=== PATIENT | male | born 1950 | race Caucasian/White ===

== ENCOUNTER 2016-12-27 16:36 | Inpatient (IN) | payer MEDICARE, OTHER ==
[~2016-12-27 16:36] MED LIST: ADULT LOW DOSE81 M1 PO; FAMVIR500 M2 PO; LEVOTHYROXINE75 MC3 PO; LOSARTAN POTAS100 M1 PO; MAGNESIUM OXID400 M1 PO; NORCO 5-325 TA1 EACH PO; OMEPRAZOLE20 M3 PO
[2016-12-31] MEDS ORDERED: PROTONIX40 M2 PO (09:41)
[2017-01-01] MEDS ORDERED: MAGNESIUM OXID400 M1 PO (12:45)
[2017-01-01] MEDS ORDERED: OMEPRAZOLE20 M3 PO (12:46)
== END 2016-12-31 13:05 | DRG 201 ==
LOC: SHSA 16:36 → PCUB 20:05
PROVIDERS: ADMIT Surgery
PROC: 0W9930Z Drainage of Right Pleural Cavity with Drainage Device, Percutaneous Approach (ICD-10-PCS; principal; 2016-12-27)
DX: J95.811 Postprocedural pneumothorax (principal); I10 Essential (primary) hypertension; F17.210 Nicotine dependence, cigarettes, uncomplicated; Z79.82 Long term (current) use of aspirin; Z85.118 Personal history of other malignant neoplasm of bronchus and lung
CPT/HCPCS: C1769; J3010; J7030

== ENCOUNTER 2017-01-01 11:32 | Inpatient (IN) | payer MEDICARE, OTHER ==
[~2017-01-01 11:32] MED LIST changes: +PROTONIX40 M2 PO
[2017-01-01] MEDS ORDERED: MAGNESIUM OXID400 M1 PO (12:45)
[2017-01-01 12:46] LABS: BASO % 0.3 % (0-2); EOS % 0.6 % (0-7); EOSINOPHIL ABSOLUTE COUNT 0.1 tho/cmm (0.0-0.7); HCT-HEMATOCRIT 32.3 % (36.0-53.5); HGB-HEMOGLOBIN 11.1 gm/dl (13.5-17.0); IMMATURE GRANULOCYTES ABSOLUTE 0.04 tho/cmm (0-0.03); IMMATURE GRANULOCYTES PERCENT 0.4 % (0-0.3); LYMPH % 3.8 % (20-45); LYMPH ABSOLUTE COUNT 0.4 tho/cmm (0.8-4.5); MCH (MEAN CORPUSCULAR HGB) 31.8 pg (28.0-32.0); MCHC MEAN CORPUSCULAR HGB CONC 34.4 % (32.0-36.0); MEAN PLATELET VOLUME 9.1 cmc (9.4-12.4); MONO % 8.6 % (0-12); MONOCYTE ABSOLUTE COUNT 0.9 tho/cmm (0.0-1.2); NEUTROPHIL ABSOLUTE COUNT 8.7 tho/cmm (1.6-8.0); NEUTROPHIL-AUTOMATED 8.7 tho/cmm (1.6-8.0); NEUTROPHILS % 86.3 % (40-80); PLATELET COUNT 359 tho/cmm (150-450); RED BLOOD COUNT 3.49 mil/cmm (4.40-5.70); RED CELL DISTRIBUTION WIDTH 16.6 % (12.4-16.4)
[2017-01-01] MEDS ORDERED: OMEPRAZOLE20 M3 PO (12:46)
[2017-01-01 12:48] LABS: MCV (MEAN CELL VOLUME) 92.6 fl (82.0-96.0)
[2017-01-01 13:06] LABS: ANION GAP 13 mmol/L (0-20); BLOOD UREA NITROGEN 11 mg/dl (6-24); CALCIUM 8.8 mg/dl (8.5-10.5); CARBON DIOXIDE-VENOUS 29 mmol/L (22-32); CHLORIDE 96 mmol/l (96-110); CREATININE 0.73 mg/dl (0.60-1.30); GLUCOSE 90 mg/dL (70-110); POTASSIUM 4.1 mmol/L (3.7-5.1); SODIUM 134 mmol/L (135-145); eGFR VALUE FOR BLACK >90 mL/Min
[2017-01-01 16:41] LABS: ALB/GLOB RATIO 0.7 (0.8-2.0); ALBUMIN 2.7 g/dl (3.5-5.0); ALKALINE PHOSPHATASE 69 U/L (33-138); ALT/SGPT 10 U/L (12-78); ANION GAP 12 mmol/L (0-20); AST/SGOT 18 U/L (10-40); BILIRUBIN,TOTAL 0.4 mg/dl (0.0-1.5); BLOOD UREA NITROGEN 11 mg/dl (6-24); CALCIUM 8.8 mg/dl (8.5-10.5); CARBON DIOXIDE-VENOUS 28 mmol/L (22-32); CHLORIDE 98 mmol/l (96-110); CREATININE 0.77 mg/dl (0.60-1.30); GLUCOSE 88 mg/dL (70-110); MAGNESIUM 1.8 mg/dl (1.3-2.6); POTASSIUM 4.1 mmol/L (3.7-5.1); SODIUM 134 mmol/L (135-145); eGFR VALUE FOR BLACK >90 mL/Min
[2017-01-02 06:17] LABS: ANION GAP 12 mmol/L (0-20); BLOOD UREA NITROGEN 10 mg/dl (6-24); CARBON DIOXIDE-VENOUS 28 mmol/L (22-32); CHLORIDE 99 mmol/l (96-110); CREATININE 0.91 mg/dl (0.60-1.30); GLUCOSE 97 mg/dL (70-110); POTASSIUM 3.6 mmol/L (3.7-5.1); SODIUM 135 mmol/L (135-145); eGFR VALUE FOR BLACK >90 mL/Min
[2017-01-03 06:00] LABS: HGB-HEMOGLOBIN 9.1 gm/dl (13.5-17.0); PLATELET COUNT 303 tho/cmm (150-450)
[2017-01-03] MEDS ORDERED: LEVAQUIN750 M1 PO (15:00)
[2017-01-03] MEDS ORDERED: VENTOLIN HFA18 G2 INH (15:00)
[2017-01-03] MEDS ORDERED: DELTASONE20 MG PO (15:02)
== END 2017-01-03 16:30 | DRG 194 ==
LOC: EDMED 11:32 → EMR2 15:55 → 5WD 16:58
PROVIDERS: Emergency Medicine; ADMIT Internal Medicine
DX: J18.9 Pneumonia, unspecified organism (principal); J95.811 Postprocedural pneumothorax; C34.31 Malignant neoplasm of lower lobe, right bronchus or lung; J44.9 Chronic obstructive pulmonary disease, unspecified; J40 Bronchitis, not specified as acute or chronic; B02.9 Zoster without complications; E03.9 Hypothyroidism, unspecified; Z79.82 Long term (current) use of aspirin; Y95 Nosocomial condition; Z72.89 Other problems related to lifestyle; I10 Essential (primary) hypertension; Y83.8 Other surgical procedures as the cause of abnormal reaction of the patient, or of later complication, without mention of misadventure at the time of the procedure; Y92.9 Unspecified place or not applicable; Z85.89 Personal history of malignant neoplasm of other organs and systems; F17.210 Nicotine dependence, cigarettes, uncomplicated; Z87.442 Personal history of urinary calculi; Z92.3 Personal history of irradiation; Z92.21 Personal history of antineoplastic chemotherapy
CPT/HCPCS: G8978-GP-CJ; G8979-GP-CI; J1650; J1956; J2270; J2543; J3370; J7030; J7512; Q9967

== ENCOUNTER 2017-01-30 17:55 | Inpatient (IN) | payer MEDICARE, OTHER ==
[~2017-01-30 17:55] MED LIST changes: +DELTASONE20 MG PO; +LEVAQUIN750 M1 PO; +VENTOLIN HFA18 G2 INH
[2017-01-30] MEDS ORDERED: ATIVAN0.5 M1 PO (19:03)
[2017-01-30] MEDS ORDERED: [UNRECOGNIZED DRUG - CODE] PO (19:05)
[2017-01-30] MEDS ORDERED: SPIRIVA18 MC1 INH (19:06)
[2017-01-30] MEDS ORDERED: ADVAIR 25028 BLISTE1 INH (19:06)
[2017-01-31 06:16] LABS: ANION GAP 12 mmol/L (0-20); BLOOD UREA NITROGEN 16 mg/dl (6-24); CARBON DIOXIDE-VENOUS 30 mmol/L (22-32); CHLORIDE 97 mmol/l (96-110); CREATININE 0.74 mg/dl (0.60-1.30); GLUCOSE 123 mg/dL (70-110); MAGNESIUM 1.9 mg/dl (1.8-2.6); POTASSIUM 4.2 mmol/L (3.7-5.1); SODIUM 135 mmol/L (135-145); eGFR VALUE FOR BLACK >90 mL/Min
[2017-01-31 06:23] LABS: EOS % 0.1 % (0-7); HCT-HEMATOCRIT 28.3 % (36.0-53.5); HGB-HEMOGLOBIN 9.4 gm/dl (13.5-17.0); IMMATURE GRANULOCYTES ABSOLUTE 0.04 tho/cmm (0-0.03); IMMATURE GRANULOCYTES PERCENT 0.3 % (0-0.3); LYMPH % 4.7 % (20-45); LYMPH ABSOLUTE COUNT 0.7 tho/cmm (0.8-4.5); MCH (MEAN CORPUSCULAR HGB) 28.8 pg (28.0-32.0); MCHC MEAN CORPUSCULAR HGB CONC 33.2 % (32.0-36.0); MEAN PLATELET VOLUME 9.7 cmc (9.4-12.4); MONO % 5.2 % (0-12); MONOCYTE ABSOLUTE COUNT 0.8 tho/cmm (0.0-1.2); NEUTROPHIL ABSOLUTE COUNT 14.1 tho/cmm (1.6-8.0); NEUTROPHIL-AUTOMATED 14.1 tho/cmm (1.6-8.0); NEUTROPHILS % 89.7 % (40-80); PLATELET COUNT 378 tho/cmm (150-450); RED BLOOD COUNT 3.26 mil/cmm (4.40-5.70); RED CELL DISTRIBUTION WIDTH 16.5 % (12.4-16.4); WHITE BLOOD COUNT 15.7 tho/cmm (4.0-10.0)
[2017-01-31 06:28] LABS: MCV (MEAN CELL VOLUME) 86.8 fl (82.0-96.0)
[2017-01-31] MEDS ORDERED: COLACE100 M1 PO (11:28)
[2017-01-31] MEDS ORDERED: MIRALAX17 G2 PO (11:28)
[2017-01-31] MEDS ORDERED: VENTOLIN HFA18 G2 INH (11:28)
[2017-01-31 16:39] LABS: BODY FLUID APPEARANCE HAZY (CLEAR); BODY FLUID COLOR YELLOW (COLORLESS); BODY FLUID RBC COUNT 2000 cmm (0); BODY FLUID TYPE PLEURAL; BODY FLUID VOLUME 20 ml; BODY FLUID WBC COUNT 176 cmm
[2017-01-31 19:17] LABS: BODY FLUID LYMPHOCYTES 82 %; BODY FLUID MACROPHAGES 10 %; BODY FLUID MESOTHELIAL CELLS 3 %; BODY FLUID NEUTROPHILS 5 %
[2017-02-01 09:12] LABS: BODY FLUID TYPE PLEURAL
[2017-02-01 11:34] LABS: BASO % 0.1 % (0-2); EOSINOPHIL ABSOLUTE COUNT 0.1 tho/cmm (0.0-0.7); HCT-HEMATOCRIT 30.8 % (36.0-53.5); HGB-HEMOGLOBIN 10.1 gm/dl (13.5-17.0); IMMATURE GRANULOCYTES ABSOLUTE 0.03 tho/cmm (0-0.03); IMMATURE GRANULOCYTES PERCENT 0.3 % (0-0.3); LYMPH % 8.7 % (20-45); MCH (MEAN CORPUSCULAR HGB) 29.4 pg (28.0-32.0); MCHC MEAN CORPUSCULAR HGB CONC 32.8 % (32.0-36.0); MCV (MEAN CELL VOLUME) 89.8 fl (82.0-96.0); MEAN PLATELET VOLUME 9.2 cmc (9.4-12.4); MONO % 3.7 % (0-12); MONOCYTE ABSOLUTE COUNT 0.4 tho/cmm (0.0-1.2); NEUTROPHIL ABSOLUTE COUNT 9.6 tho/cmm (1.6-8.0); NEUTROPHIL-AUTOMATED 9.6 tho/cmm (1.6-8.0); NEUTROPHILS % 86.2 % (40-80); PLATELET COUNT 365 tho/cmm (150-450); RED BLOOD COUNT 3.43 mil/cmm (4.40-5.70); RED CELL DISTRIBUTION WIDTH 16.7 % (12.4-16.4); WHITE BLOOD COUNT 11.1 tho/cmm (4.0-10.0)
[2017-02-01 11:45] LABS: ANION GAP 13 mmol/L (0-20); BLOOD UREA NITROGEN 12 mg/dl (6-24); CALCIUM 8.8 mg/dl (8.5-10.5); CARBON DIOXIDE-VENOUS 30 mmol/L (22-32); CHLORIDE 97 mmol/l (96-110); CREATININE 0.66 mg/dl (0.60-1.30); GLUCOSE 85 mg/dL (70-110); POTASSIUM 4.1 mmol/L (3.7-5.1); SODIUM 136 mmol/L (135-145); eGFR VALUE FOR BLACK >90 mL/Min
[2017-02-01 19:30] LABS: BASO % 0.1 % (0-2); EOS % 0.1 % (0-7); HCT-HEMATOCRIT 30.5 % (36.0-53.5); HGB-HEMOGLOBIN 10.1 gm/dl (13.5-17.0); IMMATURE GRANULOCYTES ABSOLUTE 0.05 tho/cmm (0-0.03); IMMATURE GRANULOCYTES PERCENT 0.3 % (0-0.3); LYMPH % 2.1 % (20-45); LYMPH ABSOLUTE COUNT 0.3 tho/cmm (0.8-4.5); MCH (MEAN CORPUSCULAR HGB) 29.6 pg (28.0-32.0); MCHC MEAN CORPUSCULAR HGB CONC 33.1 % (32.0-36.0); MCV (MEAN CELL VOLUME) 89.4 fl (82.0-96.0); MEAN PLATELET VOLUME 9.2 cmc (9.4-12.4); MONO % 1.8 % (0-12); MONOCYTE ABSOLUTE COUNT 0.3 tho/cmm (0.0-1.2); NEUTROPHIL ABSOLUTE COUNT 15.2 tho/cmm (1.6-8.0); NEUTROPHIL-AUTOMATED 15.2 tho/cmm (1.6-8.0); NEUTROPHILS % 95.6 % (40-80); PLATELET COUNT 371 tho/cmm (150-450); RED BLOOD COUNT 3.41 mil/cmm (4.40-5.70); RED CELL DISTRIBUTION WIDTH 16.7 % (12.4-16.4); WHITE BLOOD COUNT 15.9 tho/cmm (4.0-10.0)
[2017-02-01 19:42] LABS: ANION GAP 15 mmol/L (0-20); BLOOD UREA NITROGEN 14 mg/dl (6-24); CALCIUM 8.3 mg/dl (8.5-10.5); CARBON DIOXIDE-VENOUS 26 mmol/L (22-32); CHLORIDE 98 mmol/l (96-110); CREATININE 0.77 mg/dl (0.60-1.30); GLUCOSE 127 mg/dL (70-110); MAGNESIUM 1.3 mg/dl (1.8-2.6); POTASSIUM 4.5 mmol/L (3.7-5.1); SODIUM 134 mmol/L (135-145); eGFR VALUE FOR BLACK >90 mL/Min
[2017-02-01 22:39] LABS: HCT-HEMATOCRIT 28.1 % (36.0-53.5); HGB-HEMOGLOBIN 9.3 gm/dl (13.5-17.0); MCV (MEAN CELL VOLUME) 88.9 fl (82.0-96.0); RED CELL DISTRIBUTION WIDTH 16.8 % (12.4-16.4)
[2017-02-02 05:03] LABS: BASO % 0.1 % (0-2); HCT-HEMATOCRIT 28.3 % (36.0-53.5); HGB-HEMOGLOBIN 9.2 gm/dl (13.5-17.0); IMMATURE GRANULOCYTES ABSOLUTE 0.05 tho/cmm (0-0.03); IMMATURE GRANULOCYTES PERCENT 0.4 % (0-0.3); LYMPH % 3.8 % (20-45); LYMPH ABSOLUTE COUNT 0.5 tho/cmm (0.8-4.5); MCHC MEAN CORPUSCULAR HGB CONC 32.5 % (32.0-36.0); MCV (MEAN CELL VOLUME) 89.3 fl (82.0-96.0); MEAN PLATELET VOLUME 9.2 cmc (9.4-12.4); MONO % 3.8 % (0-12); MONOCYTE ABSOLUTE COUNT 0.5 tho/cmm (0.0-1.2); NEUTROPHIL ABSOLUTE COUNT 11.8 tho/cmm (1.6-8.0); NEUTROPHIL-AUTOMATED 11.8 tho/cmm (1.6-8.0); NEUTROPHILS % 91.9 % (40-80); PLATELET COUNT 351 tho/cmm (150-450); RED BLOOD COUNT 3.17 mil/cmm (4.40-5.70); RED CELL DISTRIBUTION WIDTH 16.8 % (12.4-16.4); WHITE BLOOD COUNT 12.8 tho/cmm (4.0-10.0)
[2017-02-02 05:12] LABS: ANION GAP 12 mmol/L (0-20); BLOOD UREA NITROGEN 16 mg/dl (6-24); CALCIUM 8.5 mg/dl (8.5-10.5); CARBON DIOXIDE-VENOUS 28 mmol/L (22-32); CHLORIDE 97 mmol/l (96-110); CREATININE 0.82 mg/dl (0.60-1.30); GLUCOSE 140 mg/dL (70-110); MAGNESIUM 1.6 mg/dl (1.8-2.6); POTASSIUM 4.3 mmol/L (3.7-5.1); SODIUM 133 mmol/L (135-145); eGFR VALUE FOR BLACK >90 mL/Min
[2017-02-02 14:15] LABS: INR 1.1 INR (0.9-1.1); PROTHROMBIN TIME 12.9 SECONDS (9.0-13.6)
[2017-02-03 04:16] LABS: EOS % 0.1 % (0-7); HCT-HEMATOCRIT 24.4 % (36.0-53.5); HGB-HEMOGLOBIN 8.1 gm/dl (13.5-17.0); IMMATURE GRANULOCYTES ABSOLUTE 0.06 tho/cmm (0-0.03); IMMATURE GRANULOCYTES PERCENT 0.5 % (0-0.3); LYMPH % 4.3 % (20-45); LYMPH ABSOLUTE COUNT 0.5 tho/cmm (0.8-4.5); MCH (MEAN CORPUSCULAR HGB) 29.3 pg (28.0-32.0); MCHC MEAN CORPUSCULAR HGB CONC 33.2 % (32.0-36.0); MCV (MEAN CELL VOLUME) 88.4 fl (82.0-96.0); MEAN PLATELET VOLUME 8.7 cmc (9.4-12.4); MONO % 3.6 % (0-12); MONOCYTE ABSOLUTE COUNT 0.4 tho/cmm (0.0-1.2); NEUTROPHIL ABSOLUTE COUNT 10.9 tho/cmm (1.6-8.0); NEUTROPHIL-AUTOMATED 10.9 tho/cmm (1.6-8.0); NEUTROPHILS % 91.5 % (40-80); PLATELET COUNT 345 tho/cmm (150-450); RED BLOOD COUNT 2.76 mil/cmm (4.40-5.70); RED CELL DISTRIBUTION WIDTH 16.7 % (12.4-16.4)
[2017-02-03 04:25] LABS: ANION GAP 10 mmol/L (0-20); BLOOD UREA NITROGEN 13 mg/dl (6-24); CARBON DIOXIDE-VENOUS 30 mmol/L (22-32); CHLORIDE 101 mmol/l (96-110); CREATININE 0.61 mg/dl (0.60-1.30); GLUCOSE 121 mg/dL (70-110); MAGNESIUM 1.8 mg/dl (1.8-2.6); POTASSIUM 3.8 mmol/L (3.7-5.1); SODIUM 137 mmol/L (135-145); eGFR VALUE FOR BLACK >90 mL/Min
[2017-02-04 04:57] LABS: ANION GAP 11 mmol/L (0-20); BLOOD UREA NITROGEN 15 mg/dl (6-24); CARBON DIOXIDE-VENOUS 30 mmol/L (22-32); CHLORIDE 100 mmol/l (96-110); CREATININE 0.67 mg/dl (0.60-1.30); GLUCOSE 174 mg/dL (70-110); MAGNESIUM 1.7 mg/dl (1.8-2.6); POTASSIUM 3.6 mmol/L (3.7-5.1); SODIUM 137 mmol/L (135-145); eGFR VALUE FOR BLACK >90 mL/Min
[2017-02-04 05:03] LABS: HCT-HEMATOCRIT 25.8 % (36.0-53.5); HGB-HEMOGLOBIN 8.5 gm/dl (13.5-17.0); IMMATURE GRANULOCYTES ABSOLUTE 0.11 tho/cmm (0-0.03); IMMATURE GRANULOCYTES PERCENT 0.8 % (0-0.3); LYMPH % 3.1 % (20-45); LYMPH ABSOLUTE COUNT 0.4 tho/cmm (0.8-4.5); MCH (MEAN CORPUSCULAR HGB) 29.1 pg (28.0-32.0); MCHC MEAN CORPUSCULAR HGB CONC 32.9 % (32.0-36.0); MCV (MEAN CELL VOLUME) 88.4 fl (82.0-96.0); MEAN PLATELET VOLUME 8.9 cmc (9.4-12.4); MONO % 2.1 % (0-12); MONOCYTE ABSOLUTE COUNT 0.3 tho/cmm (0.0-1.2); NEUTROPHIL ABSOLUTE COUNT 12.6 tho/cmm (1.6-8.0); NEUTROPHIL-AUTOMATED 12.6 tho/cmm (1.6-8.0); PLATELET COUNT 393 tho/cmm (150-450); RED BLOOD COUNT 2.92 mil/cmm (4.40-5.70); RED CELL DISTRIBUTION WIDTH 16.6 % (12.4-16.4); WHITE BLOOD COUNT 13.4 tho/cmm (4.0-10.0)
[2017-02-05 07:42] LABS: ABG CO2 ARTERIAL 31 mmol/L (21-27); ARTERIAL BLD GAS O2 SATURATION 93 % (95-98); ARTERIAL BLOOD GAS PCO2 41 mmHg (32-45); ARTERIAL PO2 68 mmHg (70-100); BICARBONATE 29 mmol/L (21-28); BLOOD GAS BASE EXCESS 6 mM/L (-/+3); PH 7.47 Units (7.35-7.45)
[2017-02-06 04:31] LABS: HCT-HEMATOCRIT 29.2 % (36.0-53.5); HGB-HEMOGLOBIN 9.7 gm/dl (13.5-17.0); IMMATURE GRANULOCYTES ABSOLUTE 0.13 tho/cmm (0-0.03); IMMATURE GRANULOCYTES PERCENT 0.6 % (0-0.3); LYMPH % 2.3 % (20-45); LYMPH ABSOLUTE COUNT 0.5 tho/cmm (0.8-4.5); MCHC MEAN CORPUSCULAR HGB CONC 33.2 % (32.0-36.0); MCV (MEAN CELL VOLUME) 87.2 fl (82.0-96.0); MEAN PLATELET VOLUME 9.1 cmc (9.4-12.4); MONO % 2.6 % (0-12); MONOCYTE ABSOLUTE COUNT 0.6 tho/cmm (0.0-1.2); NEUTROPHIL ABSOLUTE COUNT 21.1 tho/cmm (1.6-8.0); NEUTROPHIL-AUTOMATED 21.1 tho/cmm (1.6-8.0); NEUTROPHILS % 94.5 % (40-80); PLATELET COUNT 446 tho/cmm (150-450); RED BLOOD COUNT 3.35 mil/cmm (4.40-5.70)
[2017-02-06 04:37] LABS: WHITE BLOOD COUNT 22.3 tho/cmm (4.0-10.0)
[2017-02-06 04:43] LABS: ANION GAP 12 mmol/L (0-20); BLOOD UREA NITROGEN 20 mg/dl (6-24); CALCIUM 6.9 mg/dl (8.5-10.5); CARBON DIOXIDE-VENOUS 28 mmol/L (22-32); CHLORIDE 97 mmol/l (96-110); CREATININE 0.84 mg/dl (0.60-1.30); GLUCOSE 217 mg/dL (70-110); MAGNESIUM 1.3 mg/dl (1.8-2.6); SODIUM 134 mmol/L (135-145); eGFR VALUE FOR BLACK >90 mL/Min
[2017-02-07 03:38] LABS: HCT-HEMATOCRIT 26.3 % (36.0-53.5); HGB-HEMOGLOBIN 8.8 gm/dl (13.5-17.0); IMMATURE GRANULOCYTES PERCENT 0.4 % (0-0.3); LYMPH ABSOLUTE COUNT 0.5 tho/cmm (0.8-4.5); MCH (MEAN CORPUSCULAR HGB) 28.9 pg (28.0-32.0); MCHC MEAN CORPUSCULAR HGB CONC 33.5 % (32.0-36.0); MCV (MEAN CELL VOLUME) 86.5 fl (82.0-96.0); MEAN PLATELET VOLUME 9.1 cmc (9.4-12.4); MONO % 2.4 % (0-12); MONOCYTE ABSOLUTE COUNT 0.6 tho/cmm (0.0-1.2); NEUTROPHIL ABSOLUTE COUNT 24.7 tho/cmm (1.6-8.0); NEUTROPHIL-AUTOMATED 24.7 tho/cmm (1.6-8.0); NEUTROPHILS % 95.2 % (40-80); PLATELET COUNT 412 tho/cmm (150-450); RED BLOOD COUNT 3.04 mil/cmm (4.40-5.70); WHITE BLOOD COUNT 25.9 tho/cmm (4.0-10.0)
[2017-02-07 03:46] LABS: ANION GAP 12 mmol/L (0-20); BLOOD UREA NITROGEN 17 mg/dl (6-24); CALCIUM 6.9 mg/dl (8.5-10.5); CARBON DIOXIDE-VENOUS 31 mmol/L (22-32); CHLORIDE 97 mmol/l (96-110); CREATININE 0.86 mg/dl (0.60-1.30); POTASSIUM 3.7 mmol/L (3.7-5.1); SODIUM 136 mmol/L (135-145); eGFR VALUE FOR BLACK >90 mL/Min
[2017-02-07 03:48] LABS: GLUCOSE 421 mg/dL (70-110)
[2017-02-10 05:10] LABS: HCT-HEMATOCRIT 24.8 % (36.0-53.5); HGB-HEMOGLOBIN 8.3 gm/dl (13.5-17.0); IMMATURE GRANULOCYTES ABSOLUTE 0.17 tho/cmm (0-0.03); IMMATURE GRANULOCYTES PERCENT 0.6 % (0-0.3); LYMPH % 3.4 % (20-45); MCH (MEAN CORPUSCULAR HGB) 29.3 pg (28.0-32.0); MCHC MEAN CORPUSCULAR HGB CONC 33.5 % (32.0-36.0); MCV (MEAN CELL VOLUME) 87.6 fl (82.0-96.0); MONO % 2.4 % (0-12); MONOCYTE ABSOLUTE COUNT 0.7 tho/cmm (0.0-1.2); NEUTROPHIL ABSOLUTE COUNT 27.6 tho/cmm (1.6-8.0); NEUTROPHIL-AUTOMATED 27.6 tho/cmm (1.6-8.0); NEUTROPHILS % 93.6 % (40-80); PLATELET COUNT 400 tho/cmm (150-450); RED BLOOD COUNT 2.83 mil/cmm (4.40-5.70); RED CELL DISTRIBUTION WIDTH 16.8 % (12.4-16.4); WHITE BLOOD COUNT 29.5 tho/cmm (4.0-10.0)
[2017-02-10 17:32] LABS: HCT-HEMATOCRIT 24.4 % (36.0-53.5); HGB-HEMOGLOBIN 8.1 gm/dl (13.5-17.0); MCV (MEAN CELL VOLUME) 86.5 fl (82.0-96.0)
[2017-02-11 04:01] LABS: HCT-HEMATOCRIT 24.5 % (36.0-53.5); HGB-HEMOGLOBIN 8.3 gm/dl (13.5-17.0); IMMATURE GRANULOCYTES ABSOLUTE 0.25 tho/cmm (0-0.03); IMMATURE GRANULOCYTES PERCENT 0.6 % (0-0.3); LYMPH % 1.8 % (20-45); LYMPH ABSOLUTE COUNT 0.7 tho/cmm (0.8-4.5); MCH (MEAN CORPUSCULAR HGB) 29.3 pg (28.0-32.0); MCHC MEAN CORPUSCULAR HGB CONC 33.9 % (32.0-36.0); MCV (MEAN CELL VOLUME) 86.6 fl (82.0-96.0); MEAN PLATELET VOLUME 8.9 cmc (9.4-12.4); MONO % 3.4 % (0-12); MONOCYTE ABSOLUTE COUNT 1.4 tho/cmm (0.0-1.2); NEUTROPHIL ABSOLUTE COUNT 37.2 tho/cmm (1.6-8.0); NEUTROPHIL-AUTOMATED 37.2 tho/cmm (1.6-8.0); NEUTROPHILS % 94.2 % (40-80); PLATELET COUNT 420 tho/cmm (150-450); RED BLOOD COUNT 2.83 mil/cmm (4.40-5.70)
[2017-02-11 04:05] LABS: ANION GAP 10 mmol/L (0-20); BLOOD UREA NITROGEN 20 mg/dl (6-24); CALCIUM 8.1 mg/dl (8.5-10.5); CARBON DIOXIDE-VENOUS 38 mmol/L (22-32); CHLORIDE 87 mmol/l (96-110); CREATININE 0.67 mg/dl (0.60-1.30); GLUCOSE 171 mg/dL (70-110); POTASSIUM 3.2 mmol/L (3.7-5.1); SODIUM 132 mmol/L (135-145); eGFR VALUE FOR BLACK >90 mL/Min
[2017-02-11 04:10] LABS: WHITE BLOOD COUNT 39.6 tho/cmm (4.0-10.0)
--- NOTE | 2017-02-11 10:44 | NUR ---
02/10: PT REFUSED AMBULATION WITH RN AND PHYSICAL AND OCCUPATIONAL THERAPY. RN OFFERED AMBULATION X3.
[2017-02-12 06:08] LABS: ANION GAP 10 mmol/L (0-20); BLOOD UREA NITROGEN 18 mg/dl (6-24); CALCIUM 8.4 mg/dl (8.5-10.5); CARBON DIOXIDE-VENOUS 36 mmol/L (22-32); CHLORIDE 90 mmol/l (96-110); CREATININE 0.65 mg/dl (0.60-1.30); GLUCOSE 180 mg/dL (70-110); POTASSIUM 4.1 mmol/L (3.7-5.1); SODIUM 132 mmol/L (135-145); eGFR VALUE FOR BLACK >90 mL/Min
[2017-02-13 06:02] LABS: HCT-HEMATOCRIT 27.2 % (36.0-53.5)
[2017-02-13 06:09] LABS: ALB/GLOB RATIO 0.4 (0.8-2.0); ALBUMIN 1.6 g/dl (3.5-5.0); ALKALINE PHOSPHATASE 88 U/L (33-138); ALT/SGPT 41 U/L (12-78); ANION GAP 11 mmol/L (0-20); AST/SGOT 31 U/L (10-40); BILIRUBIN,TOTAL 0.3 mg/dl (0.0-1.5); BLOOD UREA NITROGEN 20 mg/dl (6-24); CARBON DIOXIDE-VENOUS 33 mmol/L (22-32); CHLORIDE 89 mmol/l (96-110); CREATININE 0.61 mg/dl (0.60-1.30); GLUCOSE 131 mg/dL (70-110); PHOSPHOROUS 2.4 mg/dl (2.5-4.9); POTASSIUM 4.1 mmol/L (3.7-5.1); SODIUM 129 mmol/L (135-145); eGFR VALUE FOR BLACK >90 mL/Min
[2017-02-14 04:12] LABS: HCT-HEMATOCRIT 27.3 % (36.0-53.5)
[2017-02-14 04:26] LABS: ANION GAP 10 mmol/L (0-20); BLOOD UREA NITROGEN 18 mg/dl (6-24); CARBON DIOXIDE-VENOUS 34 mmol/L (22-32); CHLORIDE 88 mmol/l (96-110); GLUCOSE 167 mg/dL (70-110); MAGNESIUM 1.9 mg/dl (1.8-2.6); POTASSIUM 4.3 mmol/L (3.7-5.1); SODIUM 128 mmol/L (135-145); eGFR VALUE FOR BLACK >90 mL/Min
[2017-02-14 05:15] LABS: PROCALCITONIN 0.23 ng/ml (0.05-0.09)
[2017-02-14 12:41] LABS: EOS % 0.1 % (0-7); HGB-HEMOGLOBIN 9.5 gm/dl (13.5-17.0); IMMATURE GRANULOCYTES ABSOLUTE 0.17 tho/cmm (0-0.03); IMMATURE GRANULOCYTES PERCENT 0.6 % (0-0.3); LYMPH % 1.3 % (20-45); LYMPH ABSOLUTE COUNT 0.4 tho/cmm (0.8-4.5); MCH (MEAN CORPUSCULAR HGB) 28.4 pg (28.0-32.0); MCHC MEAN CORPUSCULAR HGB CONC 33.9 % (32.0-36.0); MCV (MEAN CELL VOLUME) 83.6 fl (82.0-96.0); MEAN PLATELET VOLUME 9.6 cmc (9.4-12.4); MONO % 2.8 % (0-12); MONOCYTE ABSOLUTE COUNT 0.8 tho/cmm (0.0-1.2); NEUTROPHIL ABSOLUTE COUNT 27.2 tho/cmm (1.6-8.0); NEUTROPHIL-AUTOMATED 27.2 tho/cmm (1.6-8.0); NEUTROPHILS % 95.2 % (40-80); PLATELET COUNT 314 tho/cmm (150-450); RED BLOOD COUNT 3.35 mil/cmm (4.40-5.70); RED CELL DISTRIBUTION WIDTH 16.5 % (12.4-16.4); WHITE BLOOD COUNT 28.6 tho/cmm (4.0-10.0)
[2017-02-15 05:00] LABS: EOS % 0.3 % (0-7); EOSINOPHIL ABSOLUTE COUNT 0.1 tho/cmm (0.0-0.7); HCT-HEMATOCRIT 27.2 % (36.0-53.5); HGB-HEMOGLOBIN 9.1 gm/dl (13.5-17.0); IMMATURE GRANULOCYTES ABSOLUTE 0.12 tho/cmm (0-0.03); IMMATURE GRANULOCYTES PERCENT 0.5 % (0-0.3); LYMPH % 2.6 % (20-45); LYMPH ABSOLUTE COUNT 0.6 tho/cmm (0.8-4.5); MCH (MEAN CORPUSCULAR HGB) 28.3 pg (28.0-32.0); MCHC MEAN CORPUSCULAR HGB CONC 33.5 % (32.0-36.0); MCV (MEAN CELL VOLUME) 84.7 fl (82.0-96.0); MEAN PLATELET VOLUME 9.3 cmc (9.4-12.4); MONO % 3.6 % (0-12); MONOCYTE ABSOLUTE COUNT 0.9 tho/cmm (0.0-1.2); NEUTROPHIL ABSOLUTE COUNT 21.8 tho/cmm (1.6-8.0); NEUTROPHIL-AUTOMATED 21.8 tho/cmm (1.6-8.0); PLATELET COUNT 317 tho/cmm (150-450); RED BLOOD COUNT 3.21 mil/cmm (4.40-5.70); RED CELL DISTRIBUTION WIDTH 16.6 % (12.4-16.4); WHITE BLOOD COUNT 23.5 tho/cmm (4.0-10.0)
[2017-02-15 05:32] LABS: PROCALCITONIN 0.24 ng/ml (0.05-0.09)
[2017-02-15 05:45] LABS: ALB/GLOB RATIO 0.3 (0.8-2.0); ALBUMIN 1.5 g/dl (3.5-5.0); ALKALINE PHOSPHATASE 108 U/L (33-138); ALT/SGPT 46 U/L (12-78); ANION GAP 12 mmol/L (0-20); AST/SGOT 29 U/L (10-40); BILIRUBIN,TOTAL 0.2 mg/dl (0.0-1.5); BLOOD UREA NITROGEN 16 mg/dl (6-24); CARBON DIOXIDE-VENOUS 32 mmol/L (22-32); CHLORIDE 88 mmol/l (96-110); CREATININE 0.52 mg/dl (0.60-1.30); GLUCOSE 128 mg/dL (70-110); POTASSIUM 4.2 mmol/L (3.7-5.1); SODIUM 128 mmol/L (135-145); eGFR VALUE FOR BLACK >90 mL/Min
[2017-02-16 04:48] LABS: HCT-HEMATOCRIT 28.1 % (36.0-53.5)
[2017-02-16 04:56] LABS: ANION GAP 11 mmol/L (0-20); BLOOD UREA NITROGEN 18 mg/dl (6-24); CARBON DIOXIDE-VENOUS 33 mmol/L (22-32); CHLORIDE 86 mmol/l (96-110); CREATININE 0.58 mg/dl (0.60-1.30); GLUCOSE 160 mg/dL (70-110); SODIUM 126 mmol/L (135-145); eGFR VALUE FOR BLACK >90 mL/Min
[2017-02-16 14:27] LABS: URINE SODIUM-RANDOM 26 mmol/L (20-110)
[2017-02-17 03:58] LABS: HCT-HEMATOCRIT 25.8 % (36.0-53.5)
[2017-02-17 04:48] LABS: ALBUMIN 1.4 g/dl (3.5-5.0); ANION GAP 13 mmol/L (0-20); BLOOD UREA NITROGEN 15 mg/dl (6-24); CALCIUM 7.8 mg/dl (8.5-10.5); CARBON DIOXIDE-VENOUS 31 mmol/L (22-32); CHLORIDE 89 mmol/l (96-110); CREATININE 0.57 mg/dl (0.60-1.30); GLUCOSE 115 mg/dL (70-110); PHOSPHOROUS 2.1 mg/dl (2.5-4.9); POTASSIUM 3.9 mmol/L (3.7-5.1); SODIUM 129 mmol/L (135-145); eGFR VALUE FOR BLACK >90 mL/Min
[2017-02-17 04:52] LABS: TSH-THYROID STIMULATING HORM. 5.52 uIU/ml (0.40-3.80)
[2017-02-18 05:13] LABS: HCT-HEMATOCRIT 26.5 % (36.0-53.5)
[2017-02-18 05:22] LABS: ALBUMIN 1.5 g/dl (3.5-5.0); ANION GAP 11 mmol/L (0-20); BLOOD UREA NITROGEN 20 mg/dl (6-24); CALCIUM 8.2 mg/dl (8.5-10.5); CARBON DIOXIDE-VENOUS 32 mmol/L (22-32); CHLORIDE 89 mmol/l (96-110); CREATININE 0.55 mg/dl (0.60-1.30); GLUCOSE 159 mg/dL (70-110); MAGNESIUM 1.6 mg/dl (1.8-2.6); PHOSPHOROUS 2.2 mg/dl (2.5-4.9); SODIUM 128 mmol/L (135-145); eGFR VALUE FOR BLACK >90 mL/Min
[2017-02-18 18:00] LABS: ANION GAP 12 mmol/L (0-20); BLOOD UREA NITROGEN 19 mg/dl (6-24); CALCIUM 8.4 mg/dl (8.5-10.5); CARBON DIOXIDE-VENOUS 34 mmol/L (22-32); CHLORIDE 93 mmol/l (96-110); GLUCOSE 110 mg/dL (70-110); POTASSIUM 4.5 mmol/L (3.7-5.1); SODIUM 134 mmol/L (135-145); eGFR VALUE FOR BLACK >90 mL/Min
[2017-02-19 05:39] LABS: HCT-HEMATOCRIT 28.6 % (36.0-53.5)
[2017-02-19 06:06] LABS: ALBUMIN 1.5 g/dl (3.5-5.0); BLOOD UREA NITROGEN 22 mg/dl (6-24); CHLORIDE 95 mmol/l (96-110); POTASSIUM 4.3 mmol/L (3.7-5.1); SODIUM 136 mmol/L (135-145)
[2017-02-19 06:09] LABS: ANION GAP 12 mmol/L (0-20); CALCIUM 8.3 mg/dl (8.5-10.5); CARBON DIOXIDE-VENOUS 33 mmol/L (22-32); CREATININE 0.67 mg/dl (0.60-1.30); GLUCOSE 147 mg/dL (70-110); MAGNESIUM 2.1 mg/dl (1.8-2.6); PHOSPHOROUS 2.6 mg/dl (2.5-4.9); eGFR VALUE FOR BLACK >90 mL/Min
[2017-02-20 04:35] LABS: EOS % 0.5 % (0-7); EOSINOPHIL ABSOLUTE COUNT 0.1 tho/cmm (0.0-0.7); HCT-HEMATOCRIT 26.6 % (36.0-53.5); HGB-HEMOGLOBIN 8.6 gm/dl (13.5-17.0); IMMATURE GRANULOCYTES PERCENT 0.5 % (0-0.3); LYMPH % 2.8 % (20-45); LYMPH ABSOLUTE COUNT 0.6 tho/cmm (0.8-4.5); MCH (MEAN CORPUSCULAR HGB) 28.1 pg (28.0-32.0); MCHC MEAN CORPUSCULAR HGB CONC 32.3 % (32.0-36.0); MCV (MEAN CELL VOLUME) 86.9 fl (82.0-96.0); MEAN PLATELET VOLUME 9.3 cmc (9.4-12.4); MONO % 4.2 % (0-12); MONOCYTE ABSOLUTE COUNT 0.9 tho/cmm (0.0-1.2); NEUTROPHIL ABSOLUTE COUNT 19.9 tho/cmm (1.6-8.0); NEUTROPHIL-AUTOMATED 19.9 tho/cmm (1.6-8.0); PLATELET COUNT 349 tho/cmm (150-450); RED BLOOD COUNT 3.06 mil/cmm (4.40-5.70); RED CELL DISTRIBUTION WIDTH 16.5 % (12.4-16.4); WHITE BLOOD COUNT 21.6 tho/cmm (4.0-10.0)
[2017-02-20 04:42] LABS: ALBUMIN 1.5 g/dl (3.5-5.0); ANION GAP 10 mmol/L (0-20); BLOOD UREA NITROGEN 23 mg/dl (6-24); CALCIUM 8.3 mg/dl (8.5-10.5); CARBON DIOXIDE-VENOUS 35 mmol/L (22-32); CHLORIDE 93 mmol/l (96-110); GLUCOSE 146 mg/dL (70-110); MAGNESIUM 1.9 mg/dl (1.8-2.6); POTASSIUM 4.2 mmol/L (3.7-5.1); SODIUM 134 mmol/L (135-145); eGFR VALUE FOR BLACK >90 mL/Min
[2017-02-21 04:58] LABS: HCT-HEMATOCRIT 27.5 % (36.0-53.5); PLATELET COUNT 363 tho/cmm (150-450)
[2017-02-21 05:12] LABS: ALBUMIN 1.5 g/dl (3.5-5.0); ANION GAP 9 mmol/L (0-20); BLOOD UREA NITROGEN 22 mg/dl (6-24); CALCIUM 8.5 mg/dl (8.5-10.5); CARBON DIOXIDE-VENOUS 37 mmol/L (22-32); CHLORIDE 92 mmol/l (96-110); CREATININE 0.65 mg/dl (0.60-1.30); GLUCOSE 178 mg/dL (70-110); PHOSPHOROUS 2.8 mg/dl (2.5-4.9); POTASSIUM 4.5 mmol/L (3.7-5.1); SODIUM 133 mmol/L (135-145); eGFR VALUE FOR BLACK >90 mL/Min
[2017-02-21 21:51] LABS: BODY FLUID APPEARANCE CLOUDY (CLEAR); BODY FLUID COLOR COLORLESS (COLORLESS); BODY FLUID TYPE BRONCH WASH; BODY FLUID VOLUME 15 ml
[2017-02-22 01:21] LABS: BODY FLUID LYMPHOCYTES 1 %; BODY FLUID MACROPHAGES 2 %; BODY FLUID NEUTROPHILS 97 %; BODY FLUID RBC COUNT 8000 cmm (0)
[2017-02-22 01:22] LABS: BODY FLUID WBC COUNT 12724 cmm
[2017-02-22 04:29] LABS: ALBUMIN 1.5 g/dl (3.5-5.0); ANION GAP 11 mmol/L (0-20); BLOOD UREA NITROGEN 22 mg/dl (6-24); CARBON DIOXIDE-VENOUS 35 mmol/L (22-32); CHLORIDE 94 mmol/l (96-110); CREATININE 0.57 mg/dl (0.60-1.30); GLUCOSE 177 mg/dL (70-110); MAGNESIUM 1.5 mg/dl (1.8-2.6); PHOSPHOROUS 2.7 mg/dl (2.5-4.9); POTASSIUM 4.3 mmol/L (3.7-5.1); SODIUM 136 mmol/L (135-145); eGFR VALUE FOR BLACK >90 mL/Min
[2017-02-23 05:00] LABS: PLATELET COUNT 316 tho/cmm (150-450)
[2017-02-23] MEDS ORDERED: BACTRIM DS TAB1 EAC2 PO (07:24)
[2017-02-24 05:19] LABS: BASO % 0.1 % (0-2); EOS % 0.6 % (0-7); EOSINOPHIL ABSOLUTE COUNT 0.1 tho/cmm (0.0-0.7); HCT-HEMATOCRIT 25.3 % (36.0-53.5); HGB-HEMOGLOBIN 8.1 gm/dl (13.5-17.0); IMMATURE GRANULOCYTES ABSOLUTE 0.06 tho/cmm (0-0.03); IMMATURE GRANULOCYTES PERCENT 0.3 % (0-0.3); LYMPH % 3.4 % (20-45); LYMPH ABSOLUTE COUNT 0.6 tho/cmm (0.8-4.5); MCH (MEAN CORPUSCULAR HGB) 27.5 pg (28.0-32.0); MCV (MEAN CELL VOLUME) 85.8 fl (82.0-96.0); MEAN PLATELET VOLUME 9.7 cmc (9.4-12.4); MONOCYTE ABSOLUTE COUNT 0.8 tho/cmm (0.0-1.2); NEUTROPHILS % 91.6 % (40-80); PLATELET COUNT 312 tho/cmm (150-450); RED BLOOD COUNT 2.95 mil/cmm (4.40-5.70); RED CELL DISTRIBUTION WIDTH 16.2 % (12.4-16.4); WHITE BLOOD COUNT 18.6 tho/cmm (4.0-10.0)
[2017-02-24 05:59] LABS: ANION GAP 10 mmol/L (0-20); BLOOD UREA NITROGEN 21 mg/dl (6-24); CALCIUM 8.2 mg/dl (8.5-10.5); CARBON DIOXIDE-VENOUS 36 mmol/L (22-32); CHLORIDE 92 mmol/l (96-110); CREATININE 0.54 mg/dl (0.60-1.30); GLUCOSE 116 mg/dL (70-110); POTASSIUM 4.2 mmol/L (3.7-5.1); SODIUM 134 mmol/L (135-145); eGFR VALUE FOR BLACK >90 mL/Min
[2017-02-24] MEDS ORDERED: SALINE SOLUTIO360 ML IV ×2 (07:20→07:22)
[2017-02-24] MEDS ORDERED: VENTOLIN HFA18 G2 INH (07:27)
[2017-02-24] MEDS ORDERED: ADVAIR 25028 BLISTE1 INH (07:30)
[2017-02-24] MEDS ORDERED: DULERA 200 MCG/13 G1 INH (07:32)
[2017-02-24] MEDS ORDERED: LOVENOX40 MG/0.1 SC (07:34)
[2017-02-24] MEDS ORDERED: TOPROL XL25 M1 PO (07:39)
[2017-02-24] MEDS ORDERED: REMERON15 M1 PO (07:42)
[2017-02-24] MEDS ORDERED: ZOLOFT25 M1 PO (07:43)
[2017-02-24] MEDS ORDERED: CHLORPROMA25 MG/1 ML IV (07:46)
[2017-02-24] MEDS ORDERED: LORAZEPAM IV (07:54)
[2017-02-24] MEDS ORDERED: TUMS200 MG PO (07:56)
[2017-02-24] MEDS ORDERED: DEXTROSE 525 GM/501 IV (07:59)
[2017-02-24] MEDS ORDERED: POTASSIUM CHLORIDE IV (08:33)
[2017-02-24] MEDS ORDERED: WATER IV (08:33)
[2017-02-24] MEDS ORDERED: MUCINEX600 M1 PO (08:38)
[2017-02-24] MEDS ORDERED: GUAIFENESIN PO (08:41)
[2017-02-24] MEDS ORDERED: ZOFRAN2 MG/1 M1 IV (08:43)
[2017-02-24] MEDS ORDERED: PREDNISONE10 M1 PO (08:45)
[2017-02-24] MEDS ORDERED: SYNTHROID0.2 MG/TAB PO (08:47)
== END 2017-02-24 12:20 | disposition other institution (70) | DRG 163 ==
LOC: PCUA 17:55 → ORW 02-01 15:32 → PACU 02-01 18:43 → CCU 02-01 19:50 → PACU 02-21 20:41 → CCU 02-21 21:15 → 5WE 02-23 16:45 → CCU 02-23 17:44
PROVIDERS: Internal Medicine Critical Care Medicine; Internal Medicine Gastroenterology; Internal Medicine Nephrology; Internal Medicine Pulmonary Disease; Nurse Practitioner Family; Surgery Vascular Surgery; ADMIT Surgery
PROC: 0W9930Z Drainage of Right Pleural Cavity with Drainage Device, Percutaneous Approach (ICD-10-PCS; 2017-01-31)
PROC: 0BDN4ZZ Extraction of Right Pleura, Percutaneous Endoscopic Approach (ICD-10-PCS; principal; 2017-02-01)
PROC: 5A09357 Assistance with Respiratory Ventilation, Less than 24 Consecutive Hours, Continuous Positive Airway Pressure (ICD-10-PCS; 2017-02-01)
PROC: 0DB68ZX Excision of Stomach, Via Natural or Artificial Opening Endoscopic, Diagnostic (ICD-10-PCS; 2017-02-02)
PROC: 0BQ Respiratory System, Repair (ICD-10-PCS; 2017-02-21)
PROC: 0BB38ZX Excision of Right Main Bronchus, Via Natural or Artificial Opening Endoscopic, Diagnostic (ICD-10-PCS; 2017-02-21)
DX: J90 Pleural effusion, not elsewhere classified (principal); J86.0 Pyothorax with fistula; J96.01 Acute respiratory failure with hypoxia; E43 Unspecified severe protein-calorie malnutrition; E22.2 Syndrome of inappropriate secretion of antidiuretic hormone; K92.2 Gastrointestinal hemorrhage, unspecified; D62 Acute posthemorrhagic anemia; J93.9 Pneumothorax, unspecified; Z79.82 Long term (current) use of aspirin; Z85.118 Personal history of other malignant neoplasm of bronchus and lung; Z87.891 Personal history of nicotine dependence; D64.9 Anemia, unspecified; Z85.528 Personal history of other malignant neoplasm of kidney; Z85.89 Personal history of malignant neoplasm of other organs and systems; R12 Heartburn; Z92.21 Personal history of antineoplastic chemotherapy; J44.9 Chronic obstructive pulmonary disease, unspecified; I12.9 Hypertensive chronic kidney disease with stage 1 through stage 4 chronic kidney disease, or unspecified chronic kidney disease; N18.9 Chronic kidney disease, unspecified; E03.9 Hypothyroidism, unspecified; Z92.3 Personal history of irradiation; F32.9 Major depressive disorder, single episode, unspecified; Z68.20 Body mass index [BMI] 20.0-20.9, adult; K44.9 Diaphragmatic hernia without obstruction or gangrene; Z90.2 Acquired absence of lung [part of]; K25.9 Gastric ulcer, unspecified as acute or chronic, without hemorrhage or perforation; F41.9 Anxiety disorder, unspecified; Z66 Do not resuscitate; D72.829 Elevated white blood cell count, unspecified; R06.6 Hiccough; R00.0 Tachycardia, unspecified
CPT/HCPCS: C1729; C1769; C2615; C9113; J1364; J1650; J1720; J1815; J1940; J2060; J2250; J2270; J2405; J2543; J2930; J2997; J3010; J3230; J3475; J3480; J7030; J7040; J7050; J7512; P9016; P9045; Q9967